=== PATIENT | female | born 1985 | race Caucasian/White ===

== ENCOUNTER 2018-09-20 06:55 | Inpatient (IN) | payer OTHER ==
[2018-09-20] MEDS ORDERED: OXYTOCIN 10000 MU/ML SOL IM PRN (07:01)
[2018-09-20] MEDS ORDERED: CARBOPROST 250 MCG/ML SOL IM PRN (07:01)
[2018-09-20] MEDS ORDERED: FENTANYL 100MCG/2ML SOL IV PRN (07:01)
[2018-09-20] MEDS ORDERED: SODIUM CHLORIDE 0.9% FLUSH 10 ML SOL IV PRN (07:01)
[2018-09-20] MEDS ORDERED: METHYLERGONOVINE MALEATE 0.2 MG/ML SOL IM PRN (07:01)
[2018-09-20] MEDS ORDERED: LACTATED RINGERS 1,000 ML IV PRN (07:01)
[2018-09-20] MEDS ORDERED: MEPIVACAINE HCL 1% MPF 30 ML/VIAL SOL INFIL PRN (07:01)
[2018-09-20] MEDS ORDERED: DIPHENHYDRAMINE 50 MG/ML SOL IV PRN (07:20)
[2018-09-20] MEDS ORDERED: NALBUPHINE HCL 20 MG/ML SOL IV PRN (07:20)
[2018-09-20] MEDS ORDERED: EPHEDRINE SULFATE 50 MG/ML SOL IV PRN (07:20)
[2018-09-20] MEDS ORDERED: NALOXONE HYDROCHLORIDE 0.4 MG/ML SOL IV PRN (07:20)
[2018-09-20] MEDS ORDERED: LACTATED RINGERS 1,000 ML IV SCH (07:30)
[2018-09-20] MEDS: SODIUM CHLORIDE 0.9% FLUSH 10 ML SOL IV SCH ×2 (07:35→21:40)
[2018-09-20] MEDS: LACTATED RINGERS 1,000 ML IV SCH ×2 (07:40→08:28)
[2018-09-20 07:55] LABS: BASOPHILS % (AUTO) 1 % (0-3); EOSINOPHILS % (AUTO) 2 % (0-9); HEMATOCRIT 35 % (35-47); LYMPHOCYTES % (AUTO) 18.5 % (10-50); MEAN CORPUSCULAR HEMOGLOBIN 30.8 pg (27.0-32.0); MEAN CORPUSCULAR HGB CONC 33.9 gm/dl (32.0-36.0); MEAN CORPUSCULAR VOLUME 91 fL (81-99); MONOCYTES % (AUTO) 5.7 % (0-12); NEUTROPHILS % (AUTO) 73.1 % (37-80)
[2018-09-20] MEDS ORDERED: FENTANYL 250 MCG/ 5ML SOL ONE (09:36)
[2018-09-20] MEDS ORDERED: LIDOCAINE HCL 2% MPF 10 ML SOL ONE (09:36)
[2018-09-20] MEDS ORDERED: ROPIVACAINE HYDROCHLORIDE 5 MG/ML SOL ONE (09:37)
[2018-09-20] MEDS ORDERED: TEMAZEPAM 15MG 15 MG CAP PO PRN (13:58)
[2018-09-20] MEDS ORDERED: BENZOCAINE/MENTHOL 1 SPR TOP PRN (13:58)
[2018-09-20] MEDS ORDERED: WITCH HAZEL 1 EA PAD TOP PRN (13:58)
[2018-09-20] MEDS ORDERED: FLEET ENEMA PR PRN (13:58)
[2018-09-20] MEDS ORDERED: BISACODYL 10 MG SUP PR PRN (13:58)
[2018-09-20] MEDS ORDERED: APAP/HYDROCODONE 1 EACH TABLET PO PRN (13:58)
[2018-09-20] MEDS ORDERED: METHYLERGONOVINE MALEATE 0.2 MG TAB PO PRN (13:58)
[2018-09-20] MEDS: IBUPROFEN 600 MG TAB PO PRN ×2 (16:42→23:01)
[2018-09-20] MEDS: DOCUSATE SODIUM 100 MG SGL PO SCH (21:25)
[2018-09-21] MEDS ORDERED: ACETAMINOPHEN 500 MG 500 MG TAB ONE ×3 (02:29→14:46)
[2018-09-21] MEDS: ACETAMINOPHEN 500 MG 500 MG TAB PO PRN ×3 (02:32→14:47)
[2018-09-21] MEDS: IBUPROFEN 600 MG TAB PO PRN ×2 (05:28→13:14)
[2018-09-21] MEDS: DOCUSATE SODIUM 100 MG SGL PO SCH (08:53)
[2018-09-21] MEDS ORDERED: FOLIC ACID 1 MG TAB PO SCH (09:00)
[2018-09-21] MEDS ORDERED: MULTIVITAMIN2 1 EA TAB PO SCH (09:00)
[2018-09-21 17:18] VITALS: BP 131/82; PULSE 65; RESP 18; TEMP 98.1; O2SAT 98
== END 2018-09-21 18:20 | disposition home or self-care (01) | DRG 807 ==
LOC: OBSVTOIN 06:55 → OB 06:55
PROVIDERS: ADMIT Family Medicine; ATTEND Family Medicine
PROC: 10E0XZZ Delivery of Products of Conception, External Approach (ICD-10-PCS; principal; 2018-09-20)
PROC: 0KQM0ZZ Repair Perineum Muscle, Open Approach (ICD-10-PCS; 2018-09-20)
PROC: 6A550ZT Pheresis of Cord Blood Stem Cells, Single (ICD-10-PCS; 2018-09-20)
DX: O80 Encounter for full-term uncomplicated delivery (principal); Z37.0 Single live birth; Z3A.40 40 weeks gestation of pregnancy
CPT/HCPCS: 36415; 59025; 85018; 85025; 94762; J0670; J2590; J2795; J3010; A9270-GY